=== PATIENT | female | born 1970 | race Caucasian/White ===

== ENCOUNTER 2019-04-29 16:08 | Emergency (ER) | payer OTHER, SELFPAY ==
[2019-04-29 16:11] VITALS: BP 166/90; PULSE 71; RESP 19; TEMP 36.7; O2SAT 100; BMI 65.1
--- NOTE | 2019-04-29 16:22 | ED.DCSUM_ITS ---
- ER Visit Summary Date of Service: 04/29/19 Chief Complaint: Sunburn History of Present Illness: The patient is a 49 F who presents with a sunburn to her bilateral lower extremities. This happened at a baseball game yesterday. She noticed a blister to her right lower leg near the ankle. No other complai nts. Physical Examination: Afebrile and vital signs unremarkable. Bilateral lower legs are erythematous over the anterior portion. There are 2 bullae just proximal to her right ankle which are intact. No other evidence of partial thickness or deeper wells. Neurovascular intact distally. Test Results: None indicated. Emergency Department Course and Treatment: Patient treated with antibiotic ointment and dry dressings. Will treat pain with Carney and Motrin. Patient was given a prescription for antibiotic ointment, anti-inflammatories, and pain medicine. Follow-up with primary care for recheck. Return for any new or worsening issues. Treatment Plan: As above Disposition: Discharge Impression: 1. Superficial and partial-thickness wells to her bilateral lower legs This note was generated with [employer] dictation software. It may contain incorrect words, spelling, and punctuation that were not noted in review of the chart prior to signing ED Disposition - Plan for ED Patient: Referrals: Merly Davis MD [Primary Care Provider] -
--- NOTE | 2019-04-29 16:24 | ED.DEP ---
ED Disposition - Plan for ED Patient: Instructions: Sunburn (Sun Poisoning) Prescriptions: Bacitracin Ointment 1 applic TOPICAL TID #1 tube Prescription Printed Ibuprofen [Motrin] 800 mg PO TID PRN PRN #20 tab PRN Reason: Pain Prescription Printed Hydrocodone Bitart/Apap 5-325 [Frostproof 5MG-325MG] 1 tab PO Q6H PRN PRN 3 Days #12 tab PRN Reason: Pain Prescription Printed Referrals: Merly Davis MD [Primary Care Provider] -
[2019-04-29] MEDS: BACITRACIN/POLYMYXIN B 15 GM Tube 1 APPLIC TOPICAL (16:37)
[2019-04-29] MEDS: HYDROcodone Bitartrate/Apap 5/325 Tablet PO (16:38)
[2019-04-29] MEDS: Ibuprofen 600 MG Tablet PO (16:39)
== END 2019-04-29 17:02 | disposition home or self-care (01) ==
PROVIDERS: Emergency Provider Emergency Medicine; Family Provider Internal Medicine; PCP Internal Medicine
DX: L55.9 Sunburn, unspecified (principal); E03.9 Hypothyroidism, unspecified; F32.9 Major depressive disorder, single episode, unspecified; E88.81 Metabolic syndrome and other insulin resistance; Z87.891 Personal history of nicotine dependence; Z79.84 Long term (current) use of oral hypoglycemic drugs; Z79.899 Other long term (current) drug therapy
CPT/HCPCS: 99284